=== PATIENT | female | born 1975 | race Caucasian/White ===

== ENCOUNTER 2017-05-21 16:36 | Emergency (ER) | payer BC ==
[2017-05-21] MEDS ORDERED: Morphine INJ* 4 MG/ML 1 ML CARPUJECT IV ONE (16:58)
[2017-05-21] MEDS ORDERED: Ketorolac INJ* 30 MG/ML 1 ML VIAL IV ONE (16:58)
[2017-05-21] MEDS ORDERED: Metoclopramide IV* 5 MG/ML 2 ML VIAL IV ONE (16:58)
[2017-05-21] MEDS ORDERED: diPHENhydraMINE IV* 50 MG/ML 1 ml VIAL (BENADRYL) IV ONE (16:58)
[2017-05-21] MEDS: NS 0.9% 1000 ML* 2,000 ML IV ONE (17:30)
[2017-05-21 17:43] LABS: Hematocrit 41 % (35-47); Hemoglobin 13.9 g/dl (12.0-16.0); Mean Corpuscular HGB Conc 34 g/dl (31-36); Mean Corpuscular Hemoglobin 30 pg (27-31); Mean Corpuscular Volume 86 fL (80-97); Mean Platelet Volume 7 um3 (7.4-10.4); Red Blood Count 4.71 10^6/ul (4.0-5.4); Red Cell Distribution Width 13 % (10.5-15); White Blood Count 8.3 10^3/ul (3.5-10.8)
[2017-05-21 17:56] LABS: Albumin 4.3 g/dL (3.2-5.2); BUN/Creatinine Ratio 16.5 (8-20); Calcium 9.1 mg/dL (8.6-10.3); EGFR African American 87.6 (>60); EGFR Non-African American 68.1 (>60); Globulin 2.8 g/dL (2-4); Potassium 3.6 mmol/L (3.5-5.0); Total Bilirubin 0.4 mg/dL (0.2-1.0); Total Protein 7.1 g/dL (6.4-8.9)
[2017-05-21 18:29] LABS: Erythrocyte Sed Rate 15 mm/Hr (0-14)
[2017-05-21 19:16] LABS: Urine Bacteria Absent (Absent); Urine Bilirubin Negative (Negative); Urine Glucose Negative (Negative); Urine Nitrite Negative (Negative)
[2017-05-21 19:42] VITALS: BP 138/71
--- NOTE | 2017-05-23 08:24 | ED ---
Tanya Howe SooYoung, scribed for Say James MD on 05/21/17 at 1656 . Headache - HPI Summary HPI Summary: A 41 y/o F presents to ED with c/o diffuse, sudden onset JAFFE onset approx an hour SUGAR MIXER. Pain radiates to neck. Pt took 4 Advil to no relief. Associated sx: vomiting, mild photophobia. Denies neck pain, fever. Pt has had prev JAFFE but not like this, rates pain as 8.5 out of 10. No PSHx. Smoker, ETOH, no drugs. Last ETOH was last night. - History Of Current Complaint Chief Complaint: EDHeadache Stated Complaint: HEADACHE/ VOMITING Time Seen by Provider: 05/21/17 16:52 Hx Obtained From: Patient Onset/Duration: Sudden Onset, Started hours ago, Still Present Initially Headache Was: "Worst Headache Ever" Timing: Constant Location of Headache: Diffuse Aggravating Factor: Bright Lights Allevating Factors: Nothing Associated Signs And Symptoms: Vomiting, Visual Changes - photophobia, Other ( Noted In Comments) - neg: neck pain, fever - Allergies/Home Medications Allergies/Adverse Reactions: Allergies Allergy/AdvReac Type Severity Reaction Status Date / Time No Known Allergies Allergy Verified 05/21/17 16:41 PMH/Surg Hx/FS Hx/Imm Hx Previously Healthy: No Opthamlomology History: Denies: Hx Legally Blind EENT History: Denies: Hx Deafness Neurological History: Reports: Hx Headaches Infectious Disease History: No Infectious Disease History: Denies: Traveled Outside the [place] in Last 30 Days - Family History Known Family History: Positive: Hypertension - mother, Diabetes - mother, Other - prostate CA - father; DVT - sister - Social History Occupation: Unemployed Lives: Alone Alcohol Use: Rare Hx Substance Use: No Substance Use Type: Reports: None Smoking Status (MU): Unknown if Ever Smoked Review of Systems Negative: Fever Positive: Photophobia Positive: Vomiting Negative: Other - neg: neck pain Positive: Headache All Other Systems Reviewed And Are Negative: Yes Physical Exam - Summary Physical Exam Summary: VITAL SIGNS: Reviewed. GENERAL: Patient is a well-developed and nourished female who is lying comfortable in the stretcher. Patient is not in any acute respiratory distress. HEAD AND FACE: No signs of trauma. No ecchymosis, hematomas or skull depressions. No sinus tenderness. EYES: PERRLA, EOMI x 2, No injected conjunctiva, no nystagmus. No photophobia. EARS: Hearing grossly intact. Ear canals and tympanic membranes are within normal limits. MOUTH: Oropharynx within normal limits. NECK: Supple, trachea is midline, no adenopathy, no JVD, no carotid bruit, no c- spine tenderness, neck with full ROM. No meningeal signs, no Kernig's or Brudzinskis signs. CHEST: Symmetric, no tenderness at palpation LUNGS: Clear to auscultation bilaterally. No wheezing or crackles. CVS: Regular rate and rhythm, S1 and S2 present, no murmurs or gallops appreciated. ABDOMEN: Soft, non-tender. No signs of distention. No rebound, no guarding, and no masses palpated. Bowel sounds are normal. EXTREMITIES: FROM in all major joints, no edema, no cyanosis or clubbing. NEURO: Alert and oriented x 3. No acute neurological deficits. Speech is normal and follows commands. SKIN: Dry and warm GCS: 15. Triage Information Reviewed: Yes Vital Signs On Initial Exam: Initial Vitals Temp Pulse Resp BP Pulse Ox 97.5 F 93 14 133/78 98 05/21/17 16:39 05/21/17 16:39 05/21/17 16:39 05/21/17 16:39 05/21/17 16:39 Vital Signs Reviewed: Yes - Jo Coma Scale Coma Scale Total: 15 Diagnostics - Vital Signs Vital Signs Temp Pulse Resp BP Pulse Ox 05/21/17 16:39 97.5 F 93 14 133/78 98 - Laboratory Lab Results: Lab Results 05/21/17 05/21/17 05/21/17 Range/Units 17:30 17:30 17:30 WBC 8.3 (3.5-10.8) 10^3/ul RBC 4.71 (4.0-5.4) 10^6/ul Hgb 13.9 (12.0-16.0) g/dl Hct 41 (35-47) % MCV 86 (80-97) fL MCH 30 (27-31) pg MCHC 34 (31-36) g/dl RDW 13 (10.5-15) % Plt Count 294 (150-450) 10^3/ul MPV 7 L (7.4-10.4) um3 Neut % (Auto) 83.2 H (38-83) % Lymph % (Auto) 12.0 L (25-47) % [place] % (Auto) 4.2 (1-9) % Eos % (Auto) 0.4 (0-6) % Baso % (Auto) 0.2 (0-2) % Absolute Neuts (auto) 6.9 (1.5-7.7) 10^3/ul Absolute Lymphs (auto) 1.0 (1.0-4.8) 10^3/ul Absolute Monos (auto) 0.4 (0-0.8) 10^3/ul Absolute Eos (auto) 0 (0-0.6) 10^3/ul Absolute Basos (auto) 0 (0-0.2) 10^3/ul Absolute Nucleated RBC 0.01 10^3/ul Nucleated RBC % 0.1 ESR 15 H (0-14) mm/Hr Carbon Monoxide Screen < 4 (<4.0) % Sodium 137 (133-145) mmol/L Potassium 3.6 (3.5-5.0) mmol/L Chloride 104 (101-111) mmol/L Carbon Dioxide 25 (22-32) mmol/L Anion Gap 8 (2-11) mmol/L BUN 15 (6-24) mg/dL Creatinine 0.91 (0.51-0.95) mg/dL Est GFR ( Amer) 87.6 (>60) Est GFR (Non-Af Amer) 68.1 (>60) BUN/Creatinine Ratio 16.5 (8-20) Glucose 101 H (70-100) mg/dL Calcium 9.1 (8.6-10.3) mg/dL Total Bilirubin 0.40 (0.2-1.0) mg/dL AST 42 H (13-39) U/L ALT 86 H (7-52) U/L Alkaline Phosphatase 61 (34-104) U/L Total Protein 7.1 (6.4-8.9) g/dL Albumin 4.3 (3.2-5.2) g/dL Globulin 2.8 (2-4) g/dL Albumin/Globulin Ratio 1.5 (1-3) Result Diagrams: 05/21/17 17:30 05/21/17 17:30 Lab Statement: Any lab studies that have been ordered have been reviewed, and results considered in the medical decision making process. Re-Evaluation - Re-Evaluation 1 Re-Evaluation Time: 18:51 Change: Improved Comment: Discussing results with pt and friend. Headache Course/Dx - Course Course Of Treatment: A 41 y/o F presents to ED with c/o diffuse, sudden-onset JAFFE onset approx an hour SUGAR MIXER. Pain radiates to neck. Pt took 4 Advil to no relief. Associated sx: vomiting, mild photophobia. Denies neck pain, fever. Pt has had prev JAFFE but not like this, rates pain as 8.5 out of 10. No PSHx. Smoker , ETOH, no drugs. Last ETOH was last night. In the ED course an IV access was obtained. Patient was placed in a cardiac rehabilitation program director. Patient was started with IV fluids. She was given Toradol, Reglan , morphine and benadryl for her headache. Labs without any significant abnormality except for. After medications all her symptoms have resolved. Patient has no meningeal signs, fever or neck pain therefore low suspicion for meningitis. At this point I discussed all the findings and test results with the patient and patients parents. They were instructed to return to the emergency room immediately if any of the symptoms return or worsens. They understand and agree. Neurological exam before discharge : Patient is alert and oriented x 3. No acute neurological deficits. Patient vital signs are stable. Patient is to follow up with the extrusion process operator in the next 2 3 days. They understand and agree. Plan of care was discussed with the patient and patient understands and agrees with the plan of care. All questions were answered at patient satisfaction. There were no further complaints or concerns. - Diagnoses Differential Diagnosis/HQI/PQRI: Migraine, Sinus Headache, Tension Headache Provider Diagnoses: Headache Discharge - Discharge Plan Condition: Stable Disposition: HOME Referrals: No Primary Care Phys,NOPCP [Primary Care Provider] - [facility] [place] [facility]IAN REFERRAL [Outside] - 3 Days Additional Instructions: Please establish and follow up with a primary care provider in 2-3 days. Please return to the ED if you experience new or worsening symptoms. The documentation as recorded by the Tanya espana SooYoung accurately reflects the service I personally performed and the decisions made by me, Say James MD.
== END 2017-05-21 19:40 | disposition home or self-care (01) ==
LOC: ED 16:36
DX: R51 Headache (principal); R11.10 Vomiting, unspecified; H53.149 Visual discomfort, unspecified
CPT/HCPCS: 36415; 80053; 81003; 81015; 82375; 85025; 85652; 96374; 96375; 99282; J1200; J1885; J2270; J2765